=== PATIENT | female | born 1970 | race Caucasian/White ===

== ENCOUNTER → 2017-12-02 | Outpatient (CLI) | payer OTHER ==
[~2017-12-02] MED LIST: ALBUAER2 INH; BACL10TA PO; CARB400T3 PO; CHLOTAB10 PO; ESTR1.252 PO; LISI-729 PO; METO50TA8 PO; PARO1TAB27 PO; QUET1TAB32 PO; RISP1TAB68 PO; RXC5 PO; ZOLP10TA PO
--- NOTE | 2017-12-02 09:11 | DIAGNOSTIC IMAGING REPORT ---
LYMPHOSCINTIGRAPHY BREAST HISTORY: 47 years-old Female BREAST CA right breast cancer COMPARISON: Breast MRI 11/22/2017 TECHNIQUE: Right anterior and right anterior oblique scintigraphic images were obtained of the chest from right breast lymphoscintigraphy. FINDINGS/PROCEDURE: Using standard sterile technique, 4 intradermal and one deep injection of 0.488 mCi of Lymphoseek was placed in the right breast. The patient tolerated the procedure well. There were no immediate complications. The patient was subsequently transported to the surgical suite. Images demonstrate approximately 3 sravan uptake about the right axilla. The most intense focus of sravan activity was marked on the skin surface. IMPRESSION: Successful right breast lymphoscintigraphy. Electronically signed by: José Miguel Corbett M.D. 12/02/2017 9:10 AM Dictated Date/Time: 12/02/2017 9:02 AM
== END | disposition home or self-care (01) ==
LOC: C.NUCL 07:11
PROVIDERS: ATTEND Surgery
DX: C50.211 Malignant neoplasm of upper-inner quadrant of right female breast (principal)

== ENCOUNTER → 2017-12-23 | Outpatient (CLI) | payer OTHER ==
[~2017-12-23] MED LIST changes: +ABL/15 PO; +KLN1X PO; +LAMO200T35 PO; +LORA1TAB13 PO; +NRN300 PO; +SNQ/25 PO
--- NOTE | 2017-12-23 15:43 | MAMMOGRAPHY REPORT ---
ULTRASOUND OF LEFT BREAST: 12/23/2017 CLINICAL HISTORY: History of right breast cancer status post recent lumpectomy. The patient also unde rwent preoperative bilateral breast MRI, which showed 2 small enhancing masses/foci in the left 3:00 and 9:00 breast. The patient underwent needle localization and surgical excision of 2 areas within th e left breast at an outside institution, with pathology yielding benign findings although there was s ome question whether the MRI findings were adequately excised. The patient presents for second look u ltrasound to evaluate the left breast findings seen on breast MRI. COMPARISON: Breast MRI dated 11/22/2017. Outside mammograms and breast ultrasound dated 10/26/2017. Findings: Real-time, high-resolution ultrasound was performed of the left breast in the region of the small enhancing findings seen on the recent breast MRI, in the left 9 to 10:00 breast anteriorly and left 2 to 3:00 breast. No suspicious masses or other suspicious sonographic abnormality is evident. No clear correlates for the MRI findings are seen sonographically. The options of MRI guided biopsy versus short interval follow-up MRI were discussed with the patient. Given that the patient had recent left breast surgical excisions in the regions of the enhancing fi ndings, the small enhancing masses/foci could be obscured by postsurgical changes on MRI or may have been completely excised. The left 3:00 posterior breast mass has some benign MRI features including oval shape with circumscribed margins. The left 9:00 mass also has benign features including corresp onding T2 hyperintensity and could represent fat necrosis. Recommend short interval follow-up bilate ral breast MRI in 3 months to reevaluate to see if the masses were adequately surgically excised or i f are still present. IMPRESSION: ACR-BI-RADS CATEGORY 3: PROBABLY BENIGN No clear sonographic correlates for the small enhancing findings seen on recent breast MRI in the lef t 9:00 and left 3:00 breast. The patient had recent surgical excisions in the regions of the enhanci ng findings, and postsurgical changes could possibly obscure the findings which would make MRI guided biopsy difficult. Recommend follow-up contrast enhanced bilateral breast MRI in 3 months to reevalu ate the enhancing findings to see if they are still present or were surgically excised. The patient was verbally notified of the results. Miracle Ríos M.D. ah/:12/23/2017 08:46:49 Motor Vehicle Examiner: Miracle Ríos MD, [facility] letter sent: Follow Up Recommended 3 BI-RADS Code: ACR-BI-RADS Category 3: Probably Benign
== END | disposition home or self-care (01) ==
LOC: C.MAMM 07:43
PROVIDERS: ATTEND Surgery
DX: N63.20 Unspecified lump in the left breast, unspecified quadrant (principal)